=== PATIENT | male | born 1985 | race Hispanic/Latino ===

== ENCOUNTER 2018-03-13 11:31 | Observation (INO) | payer OTHER ==
[2018-03-13 11:35] VITALS: PULSE 64; BMI 20.9
[2018-03-13 12:42] LABS: BASO % 0.5 % (0.0-2.0); EOS # 0.1 K/uL (0.0-0.7); EOS % 2.1 % (0.0-4.0); HEMOGLOBIN 15.8 g/dL (12.0-18.0); LYMPH # 0.9 K/uL (1.0-4.3); MEAN CORPUSCULAR HEMOGLOBIN 30.7 pg (27.0-31.0); MEAN CORPUSCULAR HGB CONC 34.5 g/dL (33.0-37.0); MEAN PLATELET VOLUME 8.1 fl (7.2-11.7); MONO # 0.4 K/uL (0.0-0.8); MONO % 9.4 % (0.0-10.0); NEUT # 3.1 K/uL (1.8-7.0); NRBC % 0.3 % (0.0-0.0); RBC 5.15 Mil/uL (4.40-5.90); RED CELL DISTRIBUTION WIDTH 12.6 % (11.5-14.5); WHITE BLOOD COUNT 4.5 K/uL (4.8-10.8)
--- NOTE | 2018-03-13 12:53 | ED PDOC ---
HPI: General Adult Time Seen by Provider: 03/13/18 12:10 Chief Complaint (Nursing): Palpitations Chief Complaint (Provider): Palpitations History Per: Patient History/Exam Limitations: no limitations Onset/Duration Of Symptoms: Days (x1) Have you had recent travel within the past 21 days to any of the following countries: [place], [place], [place] or [place]?: No Additional Complaint(s): 32 year old male with no significant past medical history presents to the ED from Urgent Care for previous episode of irregular heart beat and near syncope yesterday. Patient reports he was at work when he experienced an episode of irregular heart beat that lasted for 10 seconds and after which he "felt like he was going to pass out". The episode prompted a visit to Urgent Care, where he was advised to go to the ED. He has no family history of early myocardial infarction. Patient is a social drinker but denies smoking. He denies chest pain , shortness of breath, recent travel, calf pain, leg swelling, any injuries, or other medical complaints. PMD: Ruba TIWARI Past Medical History Reviewed: Historical Data, Nursing Documentation, Vital Signs Vital Signs: Last Vital Signs Temp 98 F 03/13/18 11:34 Pulse 64 03/13/18 11:34 Resp BP 139/90 03/13/18 11:34 Pulse Ox 100 03/13/18 13:00 - Medical History PMH: No Chronic Diseases - Surgical History Surgical History: No Surg Hx - Family History Family History: Denies: MA (early) - Social History Current smoker - smoking cessation education provided: No Ex-Smoker (has not smoked in the last 12 months): No Alcohol: Social - Allergies Allergies/Adverse Reactions: Allergies Allergy/AdvReac Type Severity Reaction Status Date / Time No Known Allergies Allergy Verified 03/13/18 11:45 Review of Systems Cardiovascular: Positive for: Palpitations (at present). Negative for: Chest Pain Respiratory: Negative for: Shortness of Breath Musculoskeletal: Positive for: Other (no calf pain or leg swelling) Physical Exam - Reviewed Nursing Documentation Reviewed: Yes Vital Signs Reviewed: Yes - Physical Exam Appears: Positive for: Non-toxic, No Acute Distress Head Exam: Positive for: ATRAUMATIC, NORMOCEPHALIC Skin: Positive for: Normal Color, Warm, Dry Eye Exam: Positive for: EOMI, Normal appearance, PERRL Neck: Positive for: Normal, Painless ROM Cardiovascular/Chest: Positive for: Regular Rate, Rhythm. Negative for: Murmur Respiratory: Positive for: CNT, Normal Breath Sounds Gastrointestinal/Abdominal: Positive for: Soft. Negative for: Tenderness Extremity: Positive for: Normal ROM (upper and lower extremities) Neurologic/Psych: Positive for: Alert, Oriented (x3) - Laboratory Results Result Diagrams: 03/13/18 12:39 03/13/18 12:39 - ECG O2 Sat by Pulse Oximetry: 100 (RA) Pulse Ox Interpretation: Normal Medical Decision Making Medical Decision Making: Time: 12:25 Initial Impression: palpitations and near syncope Initial Plan: --EKG --CMP --TSH --Troponin --Urine dip --CBC with differentials --D Dimer --PTT --Prothrombin --CXR 2 views --Urinalysis Scribe Attestation: Documented by Anette Jennings, acting as a scribe for Elva Bush MD Provider Scribe Attestation: All medical record entries made by the Scribe were at my direction and personally dictated by me. I have reviewed the chart and agree that the record accurately reflects my personal performance of the history, physical exam, medical decision making, and the department course for this patient. I have also personally directed, reviewed, and agree with the discharge instructions and disposition. Disposition - Clinical Impression Clinical Impression: Irregular heart beat, Near syncope - Patient ED Disposition Is Patient to be Admitted: Yes - Disposition Disposition Time: 13:55 Condition: STABLE Forms: [employer] (Sami) - Pt Status Changed To: Hospital Disposition Of: Observation - POA Present On Arrival: None
[2018-03-13 13:01] LABS: ALB/GLOB RATIO 1.3 (1.0-2.1); ALBUMIN 4.6 g/dL (3.5-5.0); ALT/SGPT 28 U/L (21-72); AST/SGOT 31 U/L (17-59); BLOOD UREA NITROGEN 15 mg/dl (9-20); CALCIUM 9.8 mg/dL (8.4-10.2); GFR AFRICAN-AMERICAN > 60; GFR NON-AFRICAN AMERICAN > 60
[2018-03-13 13:03] LABS: PARTIAL THROMBOPLASTIN TIME 33.7 Seconds (25.6-37.1); PROTHROMBIN TIME 11.4 Seconds (9.8-13.1)
[2018-03-13 13:20] LABS: URINE BILIRUBIN NEGATIVE (NEGATIVE); URINE BLOOD NEGATIVE (NEGATIVE); URINE CLARITY CLEAR (Clear); URINE COLOR COLORLESS (YELLOW); URINE GLUCOSE (UA) NEG (Normal); URINE LEUKOCYTE ESTERASE NEG Leu/uL (Negative); URINE PROTEIN NEGATIVE (NEGATIVE); URINE UROBILINOGEN 0.2-1.0 mg/dL (0.2-1.0)
[2018-03-13 14:44] VITALS: BP 128/77; RESP 14; TEMP 98.9; O2SAT 98
--- NOTE | 2018-03-13 16:22 | RAD ---
HISTORY: Palpitations COMPARISON: No prior. TECHNIQUE: Chest PA and lateral FINDINGS: LUNGS: No active pulmonary disease. PLEURA: No significant pleural effusion identified. No pneumothorax apparent. CARDIOVASCULAR: Normal. OSSEOUS STRUCTURES: No significant abnormalities. VISUALIZED UPPER ABDOMEN: Normal. OTHER FINDINGS: None. IMPRESSION: No active disease.
--- NOTE | 2018-03-13 22:32 | CP.PCM.CON ---
Past Patient History - Past Social History Alcohol: Social - PSYCHIATRIC Hx Substance Use: No - SURGICAL HISTORY Hx Herniorrhaphy: Yes Meds Allergies/Adverse Reactions: Allergies Allergy/AdvReac Type Severity Reaction Status Date / Time No Known Allergies Allergy Verified 03/13/18 11:45 - Medications Medications: Current Medications Metoprolol Succinate (Toprol Xl) 25 mg PO DAILY DEJA Results - Vital Signs Recent Vital Signs: Last Vital Signs Temp 98.9 F 03/13/18 14:30 Pulse 64 03/13/18 14:30 Resp 14 03/13/18 14:30 BP 128/77 03/13/18 14:30 Pulse Ox 98 03/13/18 14:30 - Labs Result Diagrams: 03/13/18 12:39 03/13/18 12:39 Labs: Laboratory Results - last 24 hr 03/13/18 03/13/18 03/13/18 12:39 12:39 12:39 WBC 4.5 L RBC 5.15 Hgb 15.8 Hct 45.8 MCV 89.0 MCH 30.7 MCHC 34.5 RDW 12.6 Plt Count 210 MPV 8.1 Neut % (Auto) 68.0 Lymph % (Auto) 20.0 Nolan % (Auto) 9.4 Eos % (Auto) 2.1 Baso % (Auto) 0.5 Neut # (Auto) 3.1 Lymph # (Auto) 0.9 L Nolan # (Auto) 0.4 Eos # (Auto) 0.1 Baso # (Auto) 0.0 PT 11.4 INR 1.0 APTT 33.7 D-Dimer, Quantitative 102 Sodium 139 Potassium 4.5 Chloride 102 Carbon Dioxide 24 Anion Gap 18 BUN 15 Creatinine 0.8 Est GFR ( Amer) > 60 Est GFR (Non-Af Amer) > 60 Random Glucose 93 Calcium 9.8 Total Bilirubin 0.7 AST 31 ALT 28 Alkaline Phosphatase 52 Troponin I < 0.0120 Total Protein 8.1 Albumin 4.6 Globulin 3.5 Albumin/Globulin Ratio 1.3 TSH 3rd Generation 1.15 Urine Color Urine Clarity Urine pH Ur Specific [place] Urine Protein Urine Glucose (UA) Urine Ketones Urine Blood Urine Nitrate Urine Bilirubin Urine Urobilinogen Ur Leukocyte Esterase 03/13/18 12:42 WBC RBC Hgb Hct MCV MCH MCHC RDW Plt Count MPV Neut % (Auto) Lymph % (Auto) Nolan % (Auto) Eos % (Auto) Baso % (Auto) Neut # (Auto) Lymph # (Auto) Nolan # (Auto) Eos # (Auto) Baso # (Auto) PT INR APTT D-Dimer, Quantitative Sodium Potassium Chloride Carbon Dioxide Anion Gap BUN Creatinine Est GFR ( Amer) Est GFR (Non-Af Amer) Random Glucose Calcium Total Bilirubin AST ALT Alkaline Phosphatase Troponin I Total Protein Albumin Globulin Albumin/Globulin Ratio TSH 3rd Generation Urine Color Colorless Urine Clarity Clear Urine pH 6.0 Ur Specific [place] < 1.005 Urine Protein Negative Urine Glucose (UA) Neg Urine Ketones Negative Urine Blood Negative Urine Nitrate Negative Urine Bilirubin Negative Urine Urobilinogen 0.2-1.0 Ur Leukocyte Esterase Neg
[2018-03-14] MEDS ORDERED: Metoprolol Succinate 25 mg XL Tab PO SCH (09:00)
--- NOTE | 2018-03-15 14:39 | CARD ---
APPROVED REPORT EKG Measurement Heart [id number] FL 132P-1 [id number] <Conclusion> Normal sinus rhythm ST elevation, probably due to early repolarization Borderline ECG
== END 2018-03-13 14:40 | disposition left against medical advice (07) ==
LOC: H.ER 11:31 → H.ERHOLD 14:00
PROVIDERS: ADMIT Family Medicine; ATTEND Family Medicine
DX: I49.9 Cardiac arrhythmia, unspecified (principal); R55 Syncope and collapse
CPT/HCPCS: 71046; 80053; 81003; 84443; 84484; 85025; 85378; 85610; 85730; 93005; 99284; G0378